=== PATIENT | male | born 1990 | race African-American/Black ===

== ENCOUNTER → 2018-07-29 | Outpatient (CLI) | payer OTHER ==
--- NOTE | 2018-07-29 16:10 | PN ---
PROGRESS NOTE This is a 28-year-old male patient, who is coming in [facility] for followup regarding his narcolepsy treatment. 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 Back then the patient was treated successfully with Provigil. 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 My last evaluation of this patient here in the sleep center was on 04/04/2018. At that time, the patient had decompensated after initial good response to Provigil. He was maxed out on Provigil dose and I gave him Adderall 10 mg b.i.d. along with the Provigil to supplement his ongoing treatment. I have not seen this patient in my office for almost 2 years. During this time, the patient was being treated through his primary care physician and his medications were being renewed. For the past 6 months, his Provigil was cut down to 200 mg once a day and Provigil was being used as a monotherapy regarding his narcolepsy treatment. Since then, he has become much more symptomatic. He was complaining of diminished level of alertness throughout the day especially at work time. He had difficulty with concentration. No reported sleep paralysis. No active hallucinations or cataplexy. 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 He is working at the [employer]. The patient works from Saturday to Saturday between 11:00 p.m. and 7:00 am in the morning. He takes his single dose of Provigil 200 mg 11:00 pm prior to going to work. This medication improves alertness during work; however, he feels still very much exhausted and tired and he arrives home 7 o'clock in the morning. He goes to bed around 7:45 am and he wakes up 12:30 pm to pick his child up from daycare. He takes on and off naps in the afternoon. But he does not take any long naps or any sleeps. Since his last evaluation, there has been no new onset comorbidities. His weight has been essentially stable. No substance abuse. No alcoholism. He has been unable to extend his number of hours of sleep as the patient has had to take care of his child that he has joint custody with his ex . He is not having any sleep attacks. His main complaint is excessive tiredness and exhaustion and sleepiness. He occasionally suddenly nodes of while working yet he has not done it while talking with other individuals or while driving. He lives very close to his work and he does not have to drive long distances. Overall level of alertness has diminished while being on 200 mg of Proventil. As mentioned there was no sleep paralysis. No hallucinations whether being a hypnagogic or hypnopompic. No restlessness in his lower extremities. PHYSICAL EXAMINATION: His current vitals his blood pressure is 120/60. Pulse 100, respirations 16, temperature 98.3, saturation 98% on room air. Weight is 206, height is 5 feet 5, neck size 15-1/2 inches. GENERAL APPEARANCE: Calm, comfortable. Head is atraumatic, normocephalic. NECK: Supple. There is no JVD. No goiter or neck masses. LUNGS: Clear to auscultation. HEART: Sounds regular rhythm. Normal S1, S2. No S3, S4. No murmurs. ABDOMEN: Soft, nontender. EXTREMITIES: No edema. No cyanosis or clubbing. NEUROLOGIC: A and O x3. No focal neurological deficits. PSYCHIATRIC: Negative for anxiety or depression. IMPRESSION: 1. Narcolepsy type 2. The patient is quite symptomatic suboptimally treated with Provigil 200 mg which he takes 11:00 pm prior to going to work. 2. 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 3. Excessive hypersomnia [place] score of 24. 4. Insufficient sleep syndrome. PLAN: I had a lengthy discussion with the patient. I discussed issues related to his sleep hygiene. The patient obviously has insufficient sleep and he is unable to take naps during the day which are very much beneficial in patients with narcolepsy. I asked him to extend sleep hours to an average of 7 hours if possible and takes naps during the day. This is not likely to happen as the patient has family responsibilities and he is a single parent. He understands the importance of sleep extension especially with his symptoms of chronic hypersomnia and sleepiness. As far as stimulant therapy, the patient needs to go back on Provigil 2 doses 200 mg at 11:00 pm prior to going to work and the second dose to be taken at around 12:30 pm to 1:00 pm after he wakes up from sleep. This will bring up his Provigil dose to 200 mg twice a day, total of 400 mg. 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 He is not interested in Xyrem and at this point in time. The importance of sleep hygiene measures were discussed. He understands that. Prescription was given for Provigil 200 mg twice a day and the patient will see me back in followup to assess his overall clinical response and will make further recommendations accordingly. MMODL / IJN: [id number] /
== END | disposition home or self-care (01) ==
LOC: SLEEP 10:08
PROVIDERS: ATTEND Internal Medicine Critical Care Medicine
DX: G47.419 Narcolepsy without cataplexy (principal); F51.12 Insufficient sleep syndrome; G47.10 Hypersomnia, unspecified; Z79.899 Other long term (current) drug therapy

== ENCOUNTER → 2019-03-10 | Outpatient (CLI) | payer BC, OTHER ==
--- NOTE | 2019-03-10 20:10 | PN ---
PROGRESS NOTE This is a 28-year-old male patient who is well known to me. Today he is coming in for followup in regards to his narcolepsy. I diagnosed the patient having type 2 narcolepsy a few years back, as the patient did not have any symptoms of cataplexy back then. The patient was treated initially with Provigil. 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 At a later stage I added Adderall 10 mg p.o. b.i.d., knowing that his treatment response to Provigil was suboptimal. His last evaluation in my office was in July of 2018. 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 Since then, the patient has moved to an afternoon shift. For now he is working from 3:15 p.m. until 11:15 p.m. He goes to sleep around 2 a.m. and gets out of bed around 10:45 a.m. in the morning. He takes his first tablet of Provigil around noontime and the second tablet of Provigil at 6 p.m., both at a dose of 200 mg. His condition has somewhat changed since his last evaluation. Note that since then the patient has had a few episodes of sleep paralysis. He has also had episodes where he would wake up with some vivid dreams, and a few instances when he was laughing and feeling happy, he felt his muscles had gotten quite weak. 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 Note that he has been on Lexapro at a dose of 10 mg on a daily basis; this has been given to him by his primary care physician. The patient is still feeling sleepy, especially during working hours. He starts off his working hours fine; however, by around 7 to 9 p.m. he feels quite low energy and feels exhausted and he feels that his body is going to give out and he needs sleep. Nevertheless, he does not take any naps during working hours. He claims that ultimately he will be switched to a morning shift. He is still working for [employer]. No sleep attacks while driving. No substance abuse. No history of any head trauma. No snoring. No recent weight gain or weight loss. No side effects related to Provigil or Adderall in the past. REVIEW OF SYSTEMS: Fourteen-point review of systems was done. Positive findings are all mentioned above in the history of present illness. No history of any headaches. No altered mentation. No restlessness in the lower extremities. No nausea. No vomiting. No diarrhea. No abdominal pain. No tachycardia or chest pain. No palpitations. No shortness of breath. No cough or sputum production. No abdominal pain. No skin ulcers or wounds. PHYSICAL EXAMINATION: CURRENT VITAL SIGNS: Temperature 97.3, pulse 88, respirations 16, saturation 97% on room air, BP 99/55. [place] score is 16. BMI 32.4. Height is 5 feet 5 inches and weight is 193. GENERAL APPEARANCE: Calm, comfortable. Head is atraumatic, normocephalic. NECK: Supple. No JVD. No goiter neck mass. LUNGS: Clear to auscultation. HEART: Heart sounds are regular rate and rhythm. Normal S1, S2. No S3, S4. No murmurs. ABDOMEN: Soft, nontender. No organomegaly. EXTREMITIES: No edema. No cyanosis or clubbing. Neurologically the patient is alert and oriented x3. There is no focal neurological deficit. IMPRESSION: 1. Narcolepsy. Initially I diagnosed this patient with type 2 narcolepsy and he was quite symptomatic and was treated with a combination of Provigil and Adderall. For now, the patient is still having excessive daytime sleepiness. He is having issues with sleep, especially during working hours. He has difficulties with his level of alertness. Nevertheless, he does not fall asleep while having conversations, eating or walking or during work hours. He feels that he has a brain fog and he has trouble concentrating. More recently he is having some symptoms that may suggest underlying cataplexy, as he reports some muscle weakness of sudden onset with strong emotions such as laughing or joking or anger. He has had also a few episodes of sleep paralysis. 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 3. Excessive hypersomnia; [place] score of 16. 4. Insufficient sleep syndrome. PLAN: 1. Extend sleep hours to an average of 8-9 hours if possible. 2. Naps during working hours and even during non-working hours would be helpful to restore some of his sleepiness. 3. Refill Provigil 200 mg twice a day, which is at the maximum dose, and this will be taken around noontime and 6 p.m. Will also give the patient Adderall 10 mg to be taken around 7 to 8 p.m. during working hours where his sleepiness becomes quite extensive and he develops brain fog where he is having trouble with concentration. 4. Ultimately I would like to switch this patient to Xyrem. I gave him appropriate literature. 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 I gave him the information regarding Xyrem and I am going to explore this option during his upcoming visit in 3 months' time. 5. Implement good sleep hygiene measures. No substance abuse. Lexapro has been refilled to him through his primary care physician. Will continue to follow. RADHA / MADDIEN: [id number] /
== END | disposition home or self-care (01) ==
LOC: SLEEP 13:20
PROVIDERS: ATTEND Internal Medicine Critical Care Medicine
DX: G47.419 Narcolepsy without cataplexy (principal); F51.12 Insufficient sleep syndrome
CPT/HCPCS: 99211

== ENCOUNTER 2021-01-10 00:09 | Emergency (ER) | payer OTHER ==
[2021-01-10 00:15] VITALS: BP 165/88; PULSE 61; RESP 22; TEMP 98
[2021-01-10] MEDS ORDERED: IBUPROFEN 600 MG STARTER PACK 4 TAB BTL PO STA (00:27)
[2021-01-10] MEDS ORDERED: AMOXIC-POT CLAV 875MG STARTER PACK 2 TAB BTL PO STA (00:27)
[2021-01-10] MEDS ORDERED: MORPHINE SULFATE 4 MG/ML SYRINGE IM STA (00:27)
[2021-01-10] MEDS ORDERED: ACET/COD 300 MG/30 MG STARTER PACK 6 TAB BTL PO STA (00:27)
--- NOTE | 2021-01-10 00:28 | ED ---
General Adult HPI - General Chief complaint: Dental/Oral Stated complaint: Rt side facial pain Time Seen by Provider: 01/10/21 00:15 Source: patient Mode of arrival: ambulatory Limitations: no limitations - History of Present Illness Initial comments: 30 year-old male patient presents to the emergency department for evaluation of right sided dental pain. Patient states he saw a dentist for this on Saturday and was told that his wisdom teeth are coming in and pressing on the other teeth. States that his pain worsened today and he went to urgent care. He was given a pain injection that did not seem to help. He denies any fever or chills. Denies any nausea or vomiting. Denies any trismus or difficulty swallowing. He was not started on antibiotics. States that he does have an appointment with an oral surgeon at the end of next month. - Related Data Home Medications Medication Instructions Recorded Confirmed modafiniL [Provigil] 200 mg PO BID 04/12/15 03/27/16 Escitalopram Oxalate [Lexapro] 10 mg PO DAILY 03/27/16 03/27/16 Previous Rx's Medication Instructions Recorded Amoxic-Pot Clav 875-125Mg 1 tab PO Q12HR #20 tablet 01/10/21 [Augmentin 875-125] Ibuprofen [Motrin] 600 mg PO Q8HR PRN #30 tab 01/10/21 Allergies Allergy/AdvReac Type Severity Reaction Status Date / Time No Known Allergies Allergy Verified 01/10/21 00:15 Review of Systems ROS Statement: Those systems with pertinent positive or pertinent negative responses have been documented in the HPI. ROS Other: All systems not noted in ROS Statement are negative. Past Medical History Past Medical History: GERD/Reflux Additional Past Medical History / Comment(s): hypoglycemia, narcolepsy History of Any Multi-Drug Resistant Organisms: None Reported Past Surgical History: Appendectomy, Hernia Repair Past Psychological History: ADD/ADHD, Anxiety, PTSD Smoking Status: Current every day smoker Past Alcohol Use History: Rare Past Drug Use History: None Reported - Past Family History Mother Family Medical History: Unable to Obtain Father Brother(s) Family Medical History: Hypertension, Sleep Apnea/CPAP/BIPAP General Exam Limitations: no limitations General appearance: alert, in no apparent distress, other (This is a well-d eveloped, well-nourished adult male patient in no acute distress. Vital signs upon presentation are temperature 98.0F, pulse 61, respirations 22, blood pressure 165/88, pulse ox 100% on room air.) Eye exam: Present: normal appearance, PERRL, EOMI. Absent: scleral icterus, conjunctival injection, periorbital swelling ENT exam: Present: normal oropharynx, mucous membranes moist, other (Patient has somewhat poor dentition. There is tenderness over the molars to the right upper and right lower dentition. No evidence of drainable abscess.) Respiratory exam: Present: normal lung sounds bilaterally. Absent: respiratory distress, wheezes, rales, rhonchi, stridor Cardiovascular Exam: Present: regular rate, normal rhythm, normal heart sounds. Absent: systolic murmur, diastolic murmur, rubs, gallop, clicks Neurological exam: Present: alert, oriented X3, CN II-XII intact Psychiatric exam: Present: normal affect, normal mood Skin exam: Present: warm, dry, intact, normal color. Absent: rash Course Vital Signs 01/10/21 00:10 Temperature 98 F Pulse Rate 61 Respiratory 22 Rate Blood Pressure 165/88 O2 Sat by Pulse 100 Oximetry Medical Decision Making - Medical Decision Making 30-year-old male patient presents to the emergency department today for evaluation of right-sided dental pain. Physical examination did reveal tenderness with tapping over the molars on the right upper and right lower dentition. No evidence for drainable abscess. Is afebrile. He does have an appointment with oral surgery next month. He is instructed to call for a possibility of sooner appointment. We'll give him pain medication here. We'll start antibiotics for possible early infection. Return parameters were discussed in detail. He verbalizes understanding and agrees with this plan. My attending is Dr. Denis. Disposition Clinical Impression: Pain, dental Disposition: HOME SELF-CARE Condition: Good Instructions (If sedation given, give patient instructions): Toothache (ED) Additional Instructions: Take medications as directed. Follow-up with dentistry is an as possible. Return to the emergency department for any new, worsening, or concerning sympt oms. Prescriptions: Amoxic-Pot Clav 875-125Mg [Augmentin 875-125] 1 tab PO Q12HR #20 tablet Ibuprofen [Motrin] 600 mg PO Q8HR PRN #30 tab PRN Reason: Pain Is patient prescribed a controlled substance at d/c from ED?: No Referrals: Abrahan Kirk MD [Primary Care Provider] - 1-2 days Time of Disposition: 00:28
== END 2021-01-10 00:43 | disposition home or self-care (01) ==
LOC: EC 00:09
DX: K08.89 Other specified disorders of teeth and supporting structures (principal); F41.9 Anxiety disorder, unspecified; F17.200 Nicotine dependence, unspecified, uncomplicated
CPT/HCPCS: 99282; 96372; J2270

== ENCOUNTER 2022-08-17 10:57 | Emergency (ER) | payer OTHER ==
[2022-08-17] MEDS ORDERED: DICYCLOMINE 10 MG/ML 2 ML AMP IM STA (13:05)
[2022-08-17] MEDS ORDERED: ONDANSETRON 4 MG/2 ML VIAL IVP STA (13:05)
[2022-08-17] MEDS ORDERED: SODIUM CHLORIDE 0.9% 1,000 ML IV STA (13:05)
[2022-08-17] MEDS ORDERED: FAMOTIDINE 20 MG/2 ML VIAL IV STA (13:07)
--- NOTE | 2022-08-17 13:11 | ED ---
General Adult HPI - General Chief complaint: Abdominal Pain Stated complaint: ABD pain Time Seen by Provider: 08/17/22 12:51 Source: patient, RN notes reviewed Mode of arrival: ambulatory Limitations: no limitations - History of Present Illness Initial comments: Patient is a pleasant 32-year-old male presenting to the emergency department with concerns with abdominal discomfort. Onset of symptoms was around 4 months ago. Patient is vomiting a proximal he once per day, sometimes twice. Patient has discomfort mostly in the left upper abdomen. No fever. No constipation or diarrhea. Patient has occasional foul odor with the stools. Patient had one episode of some blood with stool approximately a week or 2 ago. - Related Data Home Medications Medication Instructions Recorded Confirmed Escitalopram Oxalate [Lexapro] 10 mg PO DAILY 03/27/16 08/17/22 Omeprazole 40 mg PO HS 08/17/22 08/17/22 Pantoprazole [Protonix] 40 mg PO DAILY 08/17/22 08/17/22 Pitolisant HCl [Wakix] 35.6 mg PO DAILY 08/17/22 08/17/22 cloNIDine HCL [Catapres] 0.2 mg PO DAILY 08/17/22 08/17/22 Previous Rx's Medication Instructions Recorded Esomeprazole Magnesium [NexIUM 20 mg PO DAILY #30 tab 08/17/22 24Hr] Metoclopramide HCl [Reglan] 10 mg PO Q6HR PRN #15 tablet 08/17/22 Allergies Allergy/AdvReac Type Severity Reaction Status Date / Time No Known Allergies Allergy Verified 08/17/22 14:17 Review of Systems ROS Statement: Those systems with pertinent positive or pertinent negative responses have been documented in the HPI. ROS Other: All systems not noted in ROS Statement are negative. Constitutional: Denies: fever Eyes: Denies: eye pain ENT: Denies: ear pain Respiratory: Denies: cough Cardiovascular: Denies: chest pain Endocrine: Denies: fatigue Gastrointestinal: Reports: as per HPI, abdominal pain, nausea, vomiting Genitourinary: Denies: dysuria Musculoskeletal: Denies: back pain Skin: Denies: rash Neurological: Denies: weakness Past Medical History Past Medical History: GERD/Reflux Additional Past Medical History / Comment(s): hypoglycemia, narcolepsy History of Any Multi-Drug Resistant Organisms: None Reported Past Surgical History: Appendectomy, Hernia Repair Past Psychological History: ADD/ADHD, Anxiety, PTSD Smoking Status: Current every day smoker Past Alcohol Use History: Rare Past Drug Use History: None Reported - Past Family History Mother Family Medical History: Unable to Obtain Father Brother(s) Family Medical History: Hypertension, Sleep Apnea/CPAP/BIPAP General Exam Limitations: no limitations General appearance: alert, in no apparent distress Head exam: Present: atraumatic, normocephalic Eye exam: Present: normal appearance Neck exam: Present: normal inspection Respiratory exam: Present: normal lung sounds bilaterally Cardiovascular Exam: Present: regular rate, normal rhythm Expanded Peripheral pulses: 2+: Posterior Tibialis (R), Posterior Tibialis (L) GI/Abdominal exam: Present: soft, tenderness (Mild tenderness epigastric and left-sided). Absent: distended Extremities exam: Present: normal inspection Neurological exam: Present: alert Psychiatric exam: Present: normal affect, normal mood Skin exam: Present: normal color Course Vital Signs 08/17/22 08/17/22 11:12 14:04 Temperature 98.2 F 98.0 F Pulse Rate 61 50 L Respiratory 16 17 Rate Blood Pressure 115/75 117/65 O2 Sat by Pulse 100 98 Oximetry Medical Decision Making - Medical Decision Making Patient reevaluated and resting comfortably in bed. Abdomen soft and nontender. Patient updated on results and need for follow-up and recommendation for scope. - Lab Data Result diagrams: 08/17/22 13:17 08/17/22 13:17 Lab Results 08/17/22 08/17/22 08/17/22 Range/Units 13:17 13:17 13:17 WBC 6.1 (3.8-10.6) k/uL RBC 5.19 (4.30-5.90) m/uL Hgb 14.6 (13.0-17.5) gm/dL Hct 45.8 (39.0-53.0) % MCV 88.2 (80.0-100.0) fL MCH 28.1 (25.0-35.0) pg MCHC 31.8 (31.0-37.0) g/dL RDW 12.0 (11.5-15.5) % Plt Count 255 (150-450) k/uL MPV 7.9 Neutrophils % 54 % Lymphocytes % 33 % Monocytes % 7 % Eosinophils % 4 % Basophils % 1 % Neutrophils # 3.3 (1.3-7.7) k/uL Lymphocytes # 2.0 (1.0-4.8) k/uL Monocytes # 0.4 (0-1.0) k/uL Eosinophils # 0.3 (0-0.7) k/uL Basophils # 0.1 (0-0.2) k/uL PT 10.4 (9.0-12.0) sec INR 0.9 (<1.2) APTT 21.6 L (22.0-30.0) sec Sodium 141 (137-145) mmol/L Potassium 4.4 (3.5-5.1) mmol/L Chloride 102 (98-107) mmol/L Carbon Dioxide 28 (22-30) mmol/L Anion Gap 11 mmol/L BUN 16 (9-20) mg/dL Creatinine 1.00 (0.66-1.25) mg/dL Est GFR (CKD-EPI)AfAm >90 (>60 ml/min/1.73 sqM) Est GFR (CKD-EPI)NonAf >90 (>60 ml/min/1.73 sqM) Glucose 85 (74-99) mg/dL Calcium 9.4 (8.4-10.2) mg/dL Total Bilirubin 0.7 (0.2-1.3) mg/dL AST 35 (17-59) U/L ALT 25 (4-49) U/L Alkaline Phosphatase 75 (38-126) U/L Total Protein 8.2 (6.3-8.2) g/dL Albumin 5.0 (3.5-5.0) g/dL Amylase 69 (30-110) U/L Lipase 104 (23-300) U/L - Radiology Data Radiology results: report reviewed (Computed tomography scan abdomen pelvis shows no acute process), image reviewed (Computed tomography scan of abdomen and pelvis reveals no acute process) Disposition Clinical Impression: Abdominal pain Disposition: HOME SELF-CARE Condition: Stable Instructions (If sedation given, give patient instructions): Abdominal Pain (ED) Additional Instructions: Please follow-up with primary care physician in the next couple days for recheck. Please follow-up with GI or surgery and consider endoscopy. Return for increased pain, vomiting, fevers, worsening or changing symptoms or other concerns. Prescriptions have been sent to pharmacy Prescriptions: Esomeprazole Magnesium [NexIUM 24Hr] 20 mg PO DAILY #30 tab Metoclopramide HCl [Reglan] 10 mg PO Q6HR PRN #15 tablet PRN Reason: Nausea Is patient prescribed a controlled substance at d/c from ED?: No Referrals: Abrahan Kirk MD [Primary Care Provider] - 1-2 days Vesta Adkins MD [STAFF PHYSICIAN] - 1-2 days Clarence Cox MD [STAFF PHYSICIAN] - 1-2 days Time of Disposition: 15:17
[2022-08-17 13:38] LABS: Basophils # (A) 0.1 k/uL (0-0.2); Basophils % (A) 1 %; Eosinophils # (A) 0.3 k/uL (0-0.7); Eosinophils % (A) 4 %; HCT 45.8 % (39.0-53.0); HGB 14.6 gm/dL (13.0-17.5); Lymphocytes % (A) 33 %; MCH 28.1 pg (25.0-35.0); MCHC 31.8 g/dL (31.0-37.0); MCV 88.2 fL (80.0-100.0); Mean Platelet Volume 7.9; Monocytes # (A) 0.4 k/uL (0-1.0); Monocytes % (A) 7 %; Neutrophils # (A) 3.3 k/uL (1.3-7.7); Neutrophils % (A) 54 %; Platelet Count 255 k/uL (150-450); RBC 5.19 m/uL (4.30-5.90); WBC 6.1 k/uL (3.8-10.6)
[2022-08-17 13:46] LABS: ALT 25 U/L (4-49); AST 35 U/L (17-59); African American GFR (CKD) >90 (>60 ml/min/1.73 sqM); Alkaline Phosphatase 75 U/L (38-126); Amylase 69 U/L (30-110); Anion Gap 11 mmol/L; Blood Urea Nitrogen 16 mg/dL (9-20); Calcium 9.4 mg/dL (8.4-10.2); Carbon Dioxide 28 mmol/L (22-30); Chloride 102 mmol/L (98-107); Glucose 85 mg/dL (74-99); Lipase 104 U/L (23-300); Non-African American GFR(CKD) >90 (>60 ml/min/1.73 sqM); Potassium 4.4 mmol/L (3.5-5.1); Sodium 141 mmol/L (137-145); Total Bilirubin 0.7 mg/dL (0.2-1.3); Total Protein 8.2 g/dL (6.3-8.2)
--- NOTE | 2022-08-17 14:01 | CT ---
EXAMINATION TYPE: CT abdomen pelvis w con CT DLP: 1168.9 mGycm, Automated exposure control for dose reduction was used. DATE OF EXAM: 08/17/2022 1:51 PM COMPARISON: None. CLINICAL INDICATION:Male, 32 years old with history of abdominal pain TECHNIQUE: Standard CT of the abdomen and pelvis following the administration of 100 cc of Isovue 3 00 IV contrast material. Coronal and sagittal reformats were performed. FINDINGS: LOWER CHEST: Unremarkable ABDOMEN LIVER: Diffusely hypoattenuating parenchyma. GALLBLADDER AND BILE DUCTS: Unremarkable. PANCREAS: Unremarkable. SPLEEN: Unremarkable. ADRENAL GLANDS: Unremarkable. KIDNEYS AND URETERS: No evidence of hydronephrosis or renal calculus. The kidneys enhance symmetrical ly. No suspicious focal lesion. PELVIS BLADDER: Incompletely distended but grossly unremarkable. REPRODUCTIVE: Unremarkable. ABDOMEN & PELVIS STOMACH AND BOWEL: Stomach and duodenum are unremarkable. No focal wall thickening or surrounding inf lammatory changes. The appendix is not visualized however there is no significant inflammatory change s within the right lower quadrant. No evidence of bowel obstruction. PERITONEUM: No evidence of pneumoperitoneum or free fluid. VASCULATURE: No evidence of aortic aneurysm. MUSCULOSKELETAL: No acute osseous abnormalities LYMPH NODES: No gross evidence for lymphadenopathy. SOFT TISSUE/ABDOMINAL WALL: Small fat filled umbilical hernia. IMPRESSION: No acute abdominal/pelvic process.
[2022-08-17 14:02] LABS: INR 0.9 (<1.2); Partial Thromboplastin Time 21.6 sec (22.0-30.0); Prothrombin Time 10.4 sec (9.0-12.0)
[2022-08-17] MEDS ORDERED: HYDROmorphone 1 MG/ML 1 ML SYRINGE IVP STA (14:10)
[2022-08-17 15:30] VITALS: BP 117/57; PULSE 55; RESP 18; TEMP 97.9
== END 2022-08-17 15:30 | disposition home or self-care (01) ==
LOC: EC 10:57
DX: R10.12 Left upper quadrant pain (principal); R11.10 Vomiting, unspecified; K21.9 Gastro-esophageal reflux disease without esophagitis; F17.200 Nicotine dependence, unspecified, uncomplicated; Z79.899 Other long term (current) drug therapy
CPT/HCPCS: 99284; 96374; 96375; 96361; 96372; 36415; 80053; 82150; 83690; 85025; 85610; 85730; 74177; J0500; J2405; J1170; Q9967

== ENCOUNTER 2022-09-18 05:55 | Day surgery (SDC) | payer OTHER ==
[2022-09-14 14:00] VITALS: BMI 34.4
[2022-09-18] MEDS ORDERED: LACTATED RINGERS 1,000 ML IV ONE (06:29)
[2022-09-18 06:31] VITALS: TEMP 97.6
[2022-09-18] MEDS ORDERED: LACTATED RINGERS 1,000 ML IV SCH (06:32)
[2022-09-18] MEDS ORDERED: LIDOCAINE 1% (10MG/ML) FOR IV START INTRADERMA PRN (06:32)
[2022-09-18] MEDS ORDERED: fentaNYL (PF) 50 MCG/ML 2 ML AMP ONE (07:02)
[2022-09-18] MEDS ORDERED: MIDAZOLAM 2 MG/2 ML VIAL ONE (07:02)
[2022-09-18] MEDS ORDERED: LIDOCAINE 2% INJ 20 MG/ML (2 ML VIAL) ONE (07:02)
[2022-09-18] MEDS ORDERED: PROPOFOL 10 MG/ML 20 ML VIAL IV ONE (07:02)
--- NOTE | 2022-09-18 07:26 | P.PCN ---
Date of Procedure: 09/18/22 Procedure(s) Performed: Brief history: Patient is a pleasant 32-year-old white male scheduled for an elective upper endoscopy as well as colonoscopy as a part of evaluation of intermittent episodes of nausea vomiting associated with diffuse abdominal pain for the last 4 months duration. Recently given the emergency room and had a CT of abdomen and pelvis and that was unremarkable. He lost 50 pounds in the last 4 months duration. Procedure performed: Esophagogastroduodenoscopy with biopsy Colonoscopy Preoperative diagnosis: Chronic nausea vomiting and abdominal painprogressive weight loss of 50 pounds in the last 4 months Anesthesia: MAC Procedure: After informed consent was obtained from the patient was brought into the endoscopy unit and IV sedation was administered by anesthesia under continuous monitoring. Initially upper endoscopy was done. The Olympus GF 160 video endoscope was inserted inserted into the mouth and esophagus intubated without any difficulty and was gradually advanced into the stomach and duodenum and carefully examined. The bulb and second part of the duodenum appeared normal. Biopsies were done from the duodenum to rule out celiac disease. The scope was then withdrawn into the stomach adequately insufflated with air and upon careful examination the antrum had mild gastritis and biopsies were done from this area. The body, cardia and fundus appeared normal. The scope was then withdrawn into the esophagus. The GE junction was located at 40 cm to the incisors. It appeared regular with no erythema erosions or ulcerations. Rest of the esophagus appeared normal. Biopsies were done from the distal esophagus. Patient tolerated the procedure well. At this time the patient continued to remain sedation. Initial digital rectal examination was normal. Olympus CF 160 video colonoscope was then inserted into the rectum and gradually advanced to the cecum without any difficulty. Careful examination was performed as the scope was gradually being withdrawn. The prep was excellent. The cecum, ascending colon, transverse colon, descending colon, sigmoid colon and rectum appeared normal. Retroflexion was performed in the rectum and no lesions were noted. Patient tolerated the procedure well. Impression: 1. Upper endoscopy revealed mild antral gastritis but no evidence of esophagitis or peptic ulcer disease 2. Colonoscopy was within normal limits with no evidence of colitis or colorectal neoplasia Recommendations: Findings of this examination were discussed with the patient as well as his family. He was advised to follow with the biopsy results. Continue Protonix 40 mg daily and follow antireflux measures. He'll be seen in office in 2-3 weeks.
[2022-09-18] MEDS ORDERED: IV FLUID CONTINUATION 1,000 ML IV ONE (07:28)
[2022-09-18 07:32] VITALS: RESP 12
[2022-09-18 07:56] VITALS: BP 119/76; PULSE 53
== END 2022-09-18 08:24 | disposition home or self-care (01) ==
LOC: ORWHC2ENDO 05:55
PROVIDERS: ATTEND Internal Medicine Gastroenterology
DX: K29.50 Unspecified chronic gastritis without bleeding (principal); K20.0 Eosinophilic esophagitis; I10 Essential (primary) hypertension; Z79.899 Other long term (current) drug therapy
CPT/HCPCS: 88305; 45378; 43239; J2250; J3010; J2704; J2001

== ENCOUNTER → 2023-03-07 | Outpatient (CLI) | payer OTHER ==
--- NOTE | 2023-03-07 17:19 | P.SLEEP ---
History of Present Illness DATE: 03/07/2023 CONSULTATION/NEW PATIENT EVALUATION HISTORY OF PRESENT ILLNESS/SLEEP-WAKE EVALUATION: 32 year old gentleman had been evaluated in the sleep center for significant excessive daytime sleepiness secondary to narcolepsy and possible obstructive sleep apnea hypopnea syndrome. Patient had been diagnosed with narcolepsy in our institution in 2016. Was on treatment with modafinil and Adderall but was not seen in the sleep center since 2019. SLEEP SCHEDULE: Usually sleep schedule from 10:30 PM to 6 AM on weekdays and from midnight until 8 AM on weekend. FALLING ASLEEP: No problems with falling asleep, although there is a TV in bedroom. DURING SLEEP: Patient wakes up from sleep 3 times. Positive history of out of dream movements and hypnogogical hallucinations. DURING THE DAY/WAKE STATE: In the morning patient wake up tired, has difficulties to pay attention, falling asleep during the day. [place] slee piness scale is 18, which is in extremely high range. Patient usually takes 1 nap in the evening. Positive history of dreaming during naps. Positive history of possible cataplexy episodes. PAST MEDICAL HISTORY: Narcolepsy. PAST SURGICAL HISTORY: Hernia repair. MEDICATIONS: Clonidine 0.5 mg at bedtime. SOCIAL HISTORY: Positive for smoking for 13 years about 1 pack a day, alcohol consumption none. FAMILY HISTORY: Hypertension, stroke, epilepsy, sleep apnea, cancer, thyroid problems. REVIEW OF SYSTEMS: Awakenings from sleep, out of dream movements, sleepiness during the day. No fevers. No double vision. No recent chest pain. No shortness of breath. No abdominal pain. No bleeding episodes. No blood in urine. No seizure episodes. PHYSICAL EXAMINATION: GENERAL: A pleasant patient without any distress. VITAL SIGNS: BP 115/74, HR 88, RR 12, weight 209 pounds, height 5 foot 5.5 inches, body mass index 34.2. HEENT: PERRLA, EOMI. Evaluation of oropharynx showed tongue protrudes midline, low position of soft palate Mallampati 3-4. NECK: Supple. No JVD. Thyroid is not palpable. 15.5 inches in circumference. LUNGS: Clear to percussion and to auscultation. Good air exchange. No wheezing or rhonchi. HEART: S1, S2 regular. No murmurs, gallops or rubs. ABDOMEN: Soft and nontender. Bowel sounds are present. No organomegaly appreciated. EXTREMITIES: No clubbing or cyanosis. 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 Cranial nerves 2 to 7 intact. There is no fasciculation or atrophy noted. No focal deficits observed. ASSESSMENT: 1. 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 At that time the sleep latency was 3.6 minutes and 2 sleep onset REM periods have been documented. 2. Out of dream movements, REM sleep behavior disorder on control with the clonazepam treatment. 3. Multiple awakenings from sleep, low position of soft palate Mallampati 34. Patient increased weight since previous sleep study on 19 pounds. Possible obstructive sleep apnea hypopnea syndrome. 4. Obesity body mass index 34.2. 5 status post hernia repair. PLAN: 1. Polysomnography for evaluation of patient's breathing during sleep at the present time, patient increased weight and 19 pounds. 2. CPAP/BiPAP titration if sleep study confirms obstructive sleep apnea- hypopnea syndrome. 3. Preferable position during sleep on the side. 4. No driving if patient feels any sleepiness. Patient is aware of civil and criminal liability for unsafe driving. 5. Sleep hygiene with regular sleep time for at least 7.5-8 hours. 6. Watching and losing weight. 7. Prescription for Adderall 10 mg in the morning and 10 mg at noontime for treatment of narcolepsy. 8. Follow-up visit in 12 months. Thank you very much for referring this patient for consultation. Sincerely, Eric Mojica MD, PhD, FAASM. Diplomat of [place] [employer], Sleep Medicine Board by [employer] [employer] Data Entry Machine Operator of [facility] [place] Past Medical History Past Medical History: GERD/Reflux Additional Past Medical History / Comment(s): narcolepsy, states clonidine for nightmares, irregular heart beat., has been having vomiting and abd pain, hx of blood in stool. History of Any Multi-Drug Resistant Organisms: None Reported Past Surgical History: Appendectomy, Hernia Repair Past Anesthesia/Blood Transfusion Reactions: No Reported Reaction Past Psychological History: ADD/ADHD, PTSD Smoking Status: Former smoker, Vaper Past Alcohol Use History: Rare Additional Past Alcohol Use History / Comment(s): VAPES DAILY, PAST HX OF CIGARETTES, STARTED SMOKING AGE 18 Additional Drug Use History / Comment(s): CBD CURRENT - Past Family History Mother Family Medical History: Cancer, Diabetes Mellitus Additional Family Medical History / Comment(s): LYMPH NODE CANCER, CAROTID STENOSIS Father Brother(s) Family Medical History: No Reported History Father Family Medical History: Hypertension, Sleep Apnea/CPAP/BIPAP Medications and Allergies Home Medications Medication Instructions Recorded Confirmed Type Escitalopram Oxalate [Lexapro] 10 mg PO BID 03/27/16 09/18/22 History Pantoprazole [Protonix] 40 mg PO DAILY 08/17/22 09/18/22 History Pitolisant HCl [Wakix] 35.6 mg PO DAILY 08/17/22 09/18/22 History cloNIDine HCL [Catapres] 0.2 mg PO HS 08/17/22 09/18/22 History Allergies Allergy/AdvReac Type Severity Reaction Status Date / Time shellfish derived [Shrimp] Allergy POSITIVE Verified 09/18/22 06:33 ON ALLERGY TESTING wheat Allergy POSITIVE Verified 09/18/22 06:33 ON ALLERGY TESTING Sleep Note - Sleep Note Sleep Note: Temperature: Pulse Rate: Respiratory Rate: Blood Pressure: SpO2: Height: Weight: BMI: Neck Circumference:
== END ==
LOC: SLEEP 14:57
PROVIDERS: ATTEND Internal Medicine
DX: G47.52 REM sleep behavior disorder (principal); G47.419 Narcolepsy without cataplexy; E66.9 Obesity, unspecified; Z68.34 Body mass index [BMI] 34.0-34.9, adult; Z98.890 Other specified postprocedural states; Z99.89 Dependence on other enabling machines and devices; Z91.013 Allergy to seafood; Z91.018 Allergy to other foods; F17.200 Nicotine dependence, unspecified, uncomplicated
CPT/HCPCS: 99211

== ENCOUNTER → 2024-12-10 | Outpatient (CLI) | payer OTHER ==
[2024-12-10 14:57] VITALS: BP 128/86; PULSE 98; RESP 16; TEMP 98
--- NOTE | 2024-12-10 16:03 | P.PROGSL ---
Subjective DATE: 12/10/2024 FOLLOW UP VISIT. Patient returned to sleep center for follow-up visit related to treatment of significant excessive daytime sleepiness secondary to narcolepsy. Last time I saw patient in February 2023. Patient was treated for narcolepsy with Adderall 10 mg twice a day. With this medication his alertness was on control. Sleep study at that time was negative for obstructive sleep apnea. Since that time patient significantly increased weight from 209 pounds up to 254 pounds today. He has difficulties to sleep during the night. Previously he was on treatment with clonidine and with this medication he is sleep was much better. [place] sleepiness scale is significantly increased to 18. MEDICATIONS: Please see below During physical exam: GENERAL: A pleasant patient without any distress. VITAL SIGNS: Please see below, weight 254 pounds, BMI 41.3. HEENT: PERRLA, EOMI. extremely low position of soft palate Mallampati 4 NECK: Supple. No JVD. LUNGS: Clear to percussion and to auscultation. Good air exchange. No wheezing or rhonchi. HEART: S1, S2 regular. ABDOMEN: Soft and nontender. EXTREMITIES: No clubbing or cyanosis. TAPPER SHANK: Awake, alert, and oriented x3. No focal deficit. Impressions: 1. Narcolepsy, confirmed by multiple sleep latency test in our institution 2015. 2. Snoring, multiple awakenings from sleep, extremely low position of soft palate Mallampati 4. Obstructive sleep apnea hypopnea syndrome. 3. Obesity, weight 254 pounds, BMI 41.3, patient increased weight on 45 pounds since visit in 2022. 4. History of out of dream movements, possible REM sleep behavior disorder. 5. Status post hernia repair. 6. Sleep paralysis. Plan: 1. Polysomnogram for evaluation of patient breathing during the sleep at the present time for possible obstructive sleep apnea hypopnea syndrome and to check for possible REM sleep behavioral disorder. 2. Sleep hygiene with regular time in bed for at least 8 hours. 3. Daytime naps permitted 4. Precautions related to driving. No driving if feel any sleepiness. Patient is aware about civil and criminal liability for unsafe driving, promised to follow recommendations. 5. Patient will be restarted on treatment with Adderall 10 mg twice a day for improving alertness during the day. Patient also will be started on clonazepam 0.5-1 mg p.o. nightly to prevent any possible out of dream movements. 6. Following plan after reading sleep study. Thank you very much for allowing me to participate in the management of your patient. Eric Mojica MD, PhD, FAASM. Diplomat of [employer] [employer], Sleep Medicine Board by [employer] Medicine Bed Bug Exterminator of [facility] [place] Objective - Vital Signs Vital Signs: Vital Signs Temp 98 F 12/10/24 14:56 Pulse 98 12/10/24 14:56 Resp 16 12/10/24 14:56 BP 128/86 12/10/24 14:56 Pulse Ox 98 12/10/24 14:56 FiO2 Intake & Output 12/09/24 12/10/24 12/10/24 18:59 06:59 18:59 Weight 115.212 kg Home Medications: Home Medications Medication Instructions Recorded Confirmed Type Escitalopram Oxalate [Lexapro] 10 mg PO BID 03/27/16 12/10/24 History Pantoprazole [Protonix] 40 mg PO DAILY 08/17/22 09/18/22 History Pitolisant HCl [Wakix] 35.6 mg PO DAILY 08/17/22 09/18/22 History cloNIDine HCL [Catapres] 0.2 mg PO HS 08/17/22 12/10/24 History Dextroamphetamine/Amphetamine 10 mg PO BID 30 Days #60 tab 04/11/23 12/10/24 Rx [Adderall]
== END ==
LOC: 3 N SLEEP 14:17
PROVIDERS: ATTEND Internal Medicine
DX: G47.419 Narcolepsy without cataplexy (principal); R06.83 Snoring; E66.9 Obesity, unspecified; G47.53 Recurrent isolated sleep paralysis; Z68.41 Body mass index [BMI] 40.0-44.9, adult; F17.210 Nicotine dependence, cigarettes, uncomplicated; Z91.018 Allergy to other foods; Z91.013 Allergy to seafood
CPT/HCPCS: 99212

== ENCOUNTER 2025-01-11 19:24 | Outpatient (CLI) | payer OTHER ==
--- NOTE | 2025-01-13 16:50 | P.PCN ---
Description of Procedure: POLYSOMNOGRAPHY REPORT PROCEDURE(S)/DATE(S): Polysomnography 01/11/2025 CLINICAL: Patient has been seen in the sleep center for evaluation of obstructive sleep apnea-hypopnea syndrome. Please see my consultation. Sleep study has been done for evaluation of patient breathing during the sleep. PROCEDURE: The standard montage for clinical polysomnography included the electroencephalogram, the electrooculogram, the mentalis surface electromyography and Lead II cardiography. The respiratory battery consisted of measurements of nasal/buccal air flow, pressure transducer measurements from nose, thoracic and/or abdominal effort and intercostal surface electromyography. Video monitoring has been done to check for any parasomnia events. Nocturnal oxyhemoglobin saturations were obtained by finger oximetry. Step-marie titration with positive airway pressure was utilized to control the respiratory events, if necessary. RESULTS: During the diagnostic sleep study sleep efficiency was normal 87.1%. Latency to sleep onset was normal 19.0 min. Sleep architecture showed stage NI normal 5.0%, Delta sleep was absent 0%, REM sleep was normal 21.9%. Respiratory channel showed 0 obstructive apneas, 0 mixed apneas, 0 central apneas, 11 hypopneas with lowest oxygen level 80%. Total apnea hypopnea index was 1.7. Oxygen was below or equal 88% for 0.7 minutes only. Heart rate was in the range between 75 and 87, average 80. EMG showed 0 periodic limb movements per hour with 0 micro-arousals per hour. IMPRESSIONS: 1. No significant respiratory abnormalities given documented. 2. No significant periodic limb movements have been documented. 3. History of narcolepsy. Please see other impressions from consultation PLAN: 1. I will see patient for follow-up visit to discuss results of the test and following plan. 2. Losing weight program. 3. Sleep hygiene with regular time in bed for at least 7-1/2 hours. 4. No driving if feeling sleepiness. Thank you very much for allowing me to participate in the management of your patient. Sincerely, Eric Mojica MD, PhD, FAASM. Diplomat of [place] [employer] Medicine, Sleep Medicine Board by [place] [employer] Medicine Elephant Tamer of [facility] [place] cc: Abrahan Kirk MD
== END 2025-01-12 05:10 | disposition home or self-care (01) ==
LOC: 3 N SLEEP 19:24
PROVIDERS: ATTEND Internal Medicine
DX: G47.33 Obstructive sleep apnea (adult) (pediatric) (principal); Z86.69 Personal history of other diseases of the nervous system and sense organs; Z91.013 Allergy to seafood; Z91.018 Allergy to other foods; F17.210 Nicotine dependence, cigarettes, uncomplicated
CPT/HCPCS: 95810

== ENCOUNTER → 2025-01-21 | Outpatient (CLI) | payer OTHER ==
[2025-01-21 17:15] VITALS: BP 122/81; PULSE 97; RESP 16; TEMP 98.3
--- NOTE | 2025-01-21 18:33 | P.PROGSL ---
Subjective DATE: 01/21/2025 FOLLOW UP VISIT. Patient returned to sleep center for follow-up visit related to treatment of significant excessive daytime sleepiness secondary to narcolepsy. Recently patient had polysomnogram and I discussed results of sleep study with patient in details. No significant respiratory abnormalities have been documented during t he sleep test. Total apnea hypopnea index 1.7, which is in normal range some abnormalities of respirations although have been documented in the REM sleep. Patient continued to feel sleepiness during the day, episodes of sleep paralysis at night. Patient was started on Adderall 10 mg twice a day, but developed symptoms of agitation. [place] sleepiness scale is significantly increased to 18. MEDICATIONS: Please see below During physical exam: GENERAL: A pleasant patient without any distress. VITAL SIGNS: Please see below. HEENT: PERRLA, EOMI. NECK: Supple. No JVD. LUNGS: Clear to percussion and to auscultation. Good air exchange. No wheezing or rhonchi. HEART: S1, S2 regular. ABDOMEN: Soft and nontender. EXTREMITIES: No clubbing or cyanosis. 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 No focal deficit. Impressions: 1. No significant respiratory abnormalities by results of polysomnogram. 2. Narcolepsy, confirmed by multiple sleep latency test in our institution 2015. 3. Obesity, BMI in the range of 40. 4. History of out of dream movements. 5. Status post hernia repair. 6. History of sleep paralysis. Plan: 1. Patient will stop Adderall, because of side effects. Will start modafinil 200 to 300 mg in the morning. 2. Sleep hygiene with regular time in bed for at least 8 hours. 3. Daytime naps permitted 4. Precautions related to driving. No driving if feel any sleepiness. Patient is aware about civil and criminal liability for unsafe driving, promised to follow recommendations. 5. Patient will continue clonazepam 0.5 to 1 mg at bedtime to prevent any out of dream movements. 6.Follow up visit in 2 months or earlier if patient has any problems. Thank you very much for allowing me to participate in the management of your patient. Eric Mojica MD, PhD, FAASM. Diplomat of [employer] [employer], Sleep Medicine Board by [employer] Client Technical Specialist of [facility] [place] Abrahan Kirk MD Objective - Vital Signs Vital Signs: Vital Signs Temp 98.3 F 01/21/25 17:14 Pulse 97 01/21/25 17:14 Resp 16 01/21/25 17:14 BP 122/81 01/21/25 17:14 Pulse Ox 98 01/21/25 17:14 FiO2 Intake & Output 01/20/25 01/21/25 01/21/25 18:59 06:59 18:59 Weight 252 kg Home Medications: Home Medications Medication Instructions Recorded Confirmed Type Escitalopram Oxalate [Lexapro] 10 mg PO BID 03/27/16 12/10/24 History Pantoprazole [Protonix] 40 mg PO DAILY 08/17/22 09/18/22 History Pitolisant HCl [Wakix] 35.6 mg PO DAILY 08/17/22 09/18/22 History cloNIDine HCL [Catapres] 0.2 mg PO HS 08/17/22 12/10/24 History Dextroamphetamine/Amphetamine 10 mg PO BID 30 Days #60 tab 04/11/23 12/10/24 Rx [Adderall]
== END ==
LOC: 3 N SLEEP 16:36
PROVIDERS: ATTEND Internal Medicine
DX: E66.9 Obesity, unspecified (principal); G47.419 Narcolepsy without cataplexy; F17.210 Nicotine dependence, cigarettes, uncomplicated; Z68.41 Body mass index [BMI] 40.0-44.9, adult; Z98.890 Other specified postprocedural states; Z86.69 Personal history of other diseases of the nervous system and sense organs; Z91.013 Allergy to seafood; Z91.048 Other nonmedicinal substance allergy status
CPT/HCPCS: 99212

== ENCOUNTER → 2025-03-25 | Outpatient (CLI) | payer OTHER ==
[2025-03-25 16:33] VITALS: BP 120/75; PULSE 87; RESP 12; TEMP 98
--- NOTE | 2025-03-25 17:19 | P.PROGSL ---
Subjective DATE: 03/25/2025 FOLLOW UP VISIT. Patient returned to sleep center for follow-up visit related to treatment of significant excessive daytime sleepiness secondary to narcolepsy. Presently patient is on modafinil 300 mg in the morning. Patient feels better during the day, but feels significantly sleepy early afternoon. He also has concerns that modafinil may increase his risk for his depression. Previously he was on treatment with the Lexapro and patient feels better with Lexapro during the day. Patient is on clonazepam at bedtime to prevent possibly REM sleep behavioral disorder episodes. No complaints at the present time. Side effect of medication. [place] sleepiness scale is 18. MEDICATIONS:1. Modafinil 200 mg 1-1/2 tablet in the morning 2. Clonazepam 0.5 mg 1 to 2 tablets in the evening During physical exam: GENERAL: A pleasant patient without any distress. VITAL SIGNS:, Weight 245, BMI 39.5. HEENT: PERRLA, EOMI. NECK: Supple. No JVD. LUNGS: Clear to percussion and to auscultation. Good air exchange. No wheezing or rhonchi. HEART: S1, S2 regular. ABDOMEN: Soft and nontender. EXTREMITIES: No clubbing or cyanosis. 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 No focal deficit. Impressions: 1. Narcolepsy, confirmed by multiple sleep latency test in our institution in 2015 2. Obesity. 3. History of out of the movements. 4. History of depression. 5. Status post hernia repair. Plan: 1. Patient will continue treatment with modafinil, dose will be increased to 400 mg in the morning. 2. Sleep hygiene with regular time in bed for at least 8 hours. 3. Daytime naps permitted 4. Precautions related to driving. No driving if feel any sleepiness. Patient is aware about civil and criminal liability for unsafe driving, promised to follow recommendations. 5. Patient will start Lexapro 10 mg in the morning. 6. Patient will continue clonazepam 0.5 mg 1 to 2 tablets at bedtime to prevent out of the movements. 7. Follow-up visit in 1 months. 8. Patient was recommended to see psychiatrist for treatment of depression. Thank you very much for allowing me to participate in the management of your patient. Eric Mojica MD, PhD, FAASM. Diplomat of [place] [employer] Sleep Medicine, Sleep Medicine Board by [employer] [employer] Medicine Back Up Machine Operator of [facility] [place] cc: Elly Kirk MD Objective - Vital Signs Vital Signs: Vital Signs Temp 98 F 03/25/25 16:32 Pulse 87 03/25/25 16:32 Resp 12 03/25/25 16:32 BP 120/75 03/25/25 16:32 Pulse Ox 100 03/25/25 16:32 FiO2 Intake & Output 03/24/25 03/25/25 03/25/25 18:59 06:59 18:59 Weight 111.13 kg Home Medications: Home Medications Medication Instructions Recorded Confirmed Type Escitalopram Oxalate [Lexapro] 10 mg PO BID 03/27/16 12/10/24 History Pantoprazole [Protonix] 40 mg PO DAILY 08/17/22 09/18/22 History Pitolisant HCl [Wakix] 35.6 mg PO DAILY 08/17/22 09/18/22 History cloNIDine HCL [Catapres] 0.2 mg PO HS 08/17/22 12/10/24 History Dextroamphetamine/Amphetamine 10 mg PO BID 30 Days #60 tab 04/11/23 12/10/24 Rx [Adderall]
== END ==
LOC: 3 N SLEEP 15:46
PROVIDERS: ATTEND Internal Medicine
DX: G47.419 Narcolepsy without cataplexy (principal); E66.9 Obesity, unspecified; F32.A Depression, unspecified; F17.290 Nicotine dependence, other tobacco product, uncomplicated; Z98.890 Other specified postprocedural states; Z91.013 Allergy to seafood; Z91.018 Allergy to other foods
CPT/HCPCS: 99212